=== PATIENT | male | born 1985 | race Caucasian/White ===

== ENCOUNTER 2016-06-08 22:31 | Emergency (ER) | payer BC, OTHER ==
[2016-06-08 22:39] VITALS: BP 142/79; PULSE 77; RESP 18; TEMP 98.1
[2016-06-08] MEDS ORDERED: PROPARACAINE 0.5% OPHTH DROPS 15 ML BTL BOTH EYES STA (22:46)
[2016-06-08] MEDS ORDERED: CIPROFLOXACIN 0.3% OPHTH SOLN 2.5 ML BTL LEFT EYE STA (23:08)
--- NOTE | 2016-06-08 23:12 | ED ---
Eye Problem HPI - General Chief complaint: Eye Problems Stated complaint: FB Left eye Time Seen by Provider: 06/08/16 22:46 Source: patient, RN notes reviewed, old records reviewed Mode of arrival: ambulatory Limitations: no limitations - History of Present Illness Initial comments: Patient is a 30-year-old male chief complaint of a metallic foreign body in the left eye. Patient reports that is mainly over the outer upper corner of the eye and feels like it beneath his eyelid. Patient reports that he has tried to flush his eye has had not been able to get the foreign body out. 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 He reports he does wear safety glasses. He states that this occurred around 10:00 this morning and the pain is continue to persist all day. He states that he doesn't wear glasses or contacts. He denies any changes in vision. - Related Data Home Medications Medication Instructions Recorded Confirmed Ranitidine HCl [Zantac] 150 mg PO BID 06/08/16 06/08/16 Previous Rx's Medication Instructions Recorded Ciprofloxacin Ophth Soln [Ciloxan 1 drops BOTH EYES Q4HR #1 bottle 06/08/16 0.3% Ophth Soln] Allergies Allergy/AdvReac Type Severity Reaction Status Date / Time No Known Allergies Allergy Verified 06/08/16 22:39 Review of Systems ROS Statement: Those systems with pertinent positive or pertinent negative responses have been documented in the HPI. ROS Other: All systems not noted in ROS Statement are negative. Past Medical History Past Medical History: No Reported History History of Any Multi-Drug Resistant Organisms: None Reported Past Surgical History: No Surgical Hx Reported Past Psychological History: No Psychological Hx Reported Smoking Status: Former smoker Past Alcohol Use History: None Reported Past Drug Use History: None Reported General Exam Limitations: no limitations General appearance: alert, in no apparent distress Head exam: Present: atraumatic, normocephalic, normal inspection Eye exam: Present: normal appearance, PERRL, EOMI, conjunctival injection (Left eye conjunctival injection.). Absent: scleral icterus, periorbital swelling ENT exam: Present: normal exam, mucous membranes moist Neck exam: Present: normal inspection. Absent: tenderness, meningismus, lymphadenopathy Respiratory exam: Present: normal lung sounds bilaterally. Absent: respiratory distress, wheezes, rales, rhonchi, stridor Cardiovascular Exam: Present: regular rate, normal rhythm, normal heart sounds. Absent: systolic murmur, diastolic murmur, rubs, gallop, clicks GI/Abdominal exam: Present: soft, normal bowel sounds. Absent: distended, tenderness, guarding, rebound, rigid Extremities exam: Present: normal inspection, full ROM, normal capillary refill. Absent: tenderness, pedal edema, joint swelling, calf tenderness Back exam: Present: normal inspection Neurological exam: Present: alert, oriented X3, CN II-XII intact Psychiatric exam: Present: normal affect, normal mood Skin exam: Present: warm, dry, intact, normal color. Absent: rash Course Vital Signs 06/08/16 22:36 Temperature 98.1 F Pulse Rate 77 Respiratory 18 Rate Blood Pressure 142/79 O2 Sat by Pulse 99 Oximetry Medical Decision Making - Medical Decision Making Patient is a 30-year-old male chief complaint of a metallic foreign body in the left eye. Patient reports that is mainly over the outer upper corner of the eye and feels like it beneath his eyelid. Patient reports that he has tried to flush his eye has had not been able to get the foreign body out. Fluorescein eye exam was performed. No evidence of metallic foreign body embedded within the eye. The eyelid was flipped and there is evidence of the foreign body in the upper corner of the eyelid. It was removed with a moistened a cotton swab. Patient reports relief after the foreign body over the eye was removed with cotton swab. No evidence of other retained foreign body. Patient was given ciprofloxacin drops to the emergency department. Patient was also given a prescription. He was advised to return the emergency department if any worsening signs or symptoms occur. Patient also will be given the number of the rig mechanic to call if his symptoms continue to persist after 3 days. Patient understands treatment plan will comply. Return parameters were discussed. Disposition Clinical Impression: Foreign body of left eye Disposition: HOME SELF-CARE Condition: Good Instructions: Eye Foreign Body (ED) Additional Instructions: Patient advised to continue to put the eye drops and every 4 hours for the next 3 days. Return to emergency department if any alarming signs or symptoms occur. Patient also advised if symptoms continue to persist to follow-up with rig mechanic. Prescriptions: Ciprofloxacin Ophth Soln [Ciloxan 0.3% Ophth Soln] 1 drops BOTH EYES Q4HR #1 bottle Referrals: Wilfredo Mccall MD [Primary Care Provider] - 1-2 days Jamie Cai MD [STAFF PHYSICIAN] - 1-2 days Time of Disposition: 23:10
== END 2016-06-08 23:29 | disposition home or self-care (01) ==
LOC: EC 22:31
DX: S00.252A Superficial foreign body of left eyelid and periocular area, initial encounter (principal); H02.814 Retained foreign body in left upper eyelid; Z18.10 Retained metal fragments, unspecified; Z79.899 Other long term (current) drug therapy; Z87.891 Personal history of nicotine dependence
CPT/HCPCS: 99283

== ENCOUNTER 2018-04-28 13:19 | Emergency (ER) | payer BC, OTHER ==
[2018-04-28 13:25] VITALS: BP 156/96; PULSE 75; RESP 20; TEMP 98.5
[2018-04-28] MEDS ORDERED: PROPARACAINE 0.5% OPHTH DROPS 15 ML BTL LEFT EYE STA (13:30)
[2018-04-28] MEDS ORDERED: TOBRAMYCIN 0.3% OPHTH DROPS 5 ML BTL RIGHT EYE STA (13:50)
--- NOTE | 2018-04-28 13:53 | ED ---
Eye Problem HPI - General Chief complaint: Eye Problems Stated complaint: [facility]-FB in eye Time Seen by Provider: 04/28/18 13:26 Source: patient, RN notes reviewed Mode of arrival: ambulatory Limitations: no limitations - History of Present Illness Initial comments: 32-year-old male presents emergency from for right eye irritation. Patient states that he believes he had a wood chip into his right eye. Denies any blurred vision. He states it has been tearing and sensitive. His tetanus is up -to-date within last 5 years. 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 He did have glasses on. Patient offers no other complaints at this time. Denies any bleeding. - Related Data Home Medications Medication Instructions Recorded Confirmed No Known Home Medications 04/28/18 04/28/18 Allergies Allergy/AdvReac Type Severity Reaction Status Date / Time No Known Allergies Allergy Verified 04/28/18 13:35 Review of Systems ROS Statement: Those systems with pertinent positive or pertinent negative responses have been documented in the HPI. ROS Other: All systems not noted in ROS Statement are negative. Past Medical History Past Medical History: No Reported History History of Any Multi-Drug Resistant Organisms: None Reported Past Surgical History: No Surgical Hx Reported Past Psychological History: No Psychological Hx Reported Smoking Status: Former smoker Past Alcohol Use History: None Reported Past Drug Use History: None Reported General Exam Limitations: no limitations General appearance: alert, in no apparent distress Head exam: Present: atraumatic, normocephalic, normal inspection Eye exam: Present: PERRL, EOMI, conjunctival injection (Mild right), other ( Flourescein dye and Wood's lamp were used to evaluate the right eye. There is noted uptake in the 6 o'clock position of the sclera). Absent: normal appearance, scleral icterus, periorbital swelling ENT exam: Present: normal exam, normal oropharynx, mucous membranes moist Neck exam: Present: normal inspection. Absent: tenderness, meningismus, lymphadenopathy Respiratory exam: Present: normal lung sounds bilaterally. Absent: respiratory distress, wheezes, rales, rhonchi, stridor Cardiovascular Exam: Present: regular rate, normal rhythm, normal heart sounds. Absent: systolic murmur, diastolic murmur, rubs, gallop, clicks Course Vital Signs 04/28/18 13:23 Temperature 98.5 F Pulse Rate 75 Respiratory 20 Rate Blood Pressure 156/96 O2 Sat by Pulse 98 Oximetry Medical Decision Making - Medical Decision Making 32-year-old male presented for right eye irritation. Patient has a sclera abrasion. There is no foreign body noted. Patient's tetanus is up-to-date. Patient was given Tobrex eyedrops will follow-up with ophthalmology on Tuesday return for any worsening symptoms. Disposition Clinical Impression: Abrasion of sclera of right eye Disposition: HOME SELF-CARE Condition: Stable Instructions (If sedation given, give patient instructions): Corneal Abrasion ( ED) Additional Instructions: Use Tobrex eyedrops 1 drop every 4 hours for 7 days. Please return to the Emergency Department if symptoms worsen or any other concerns. Is patient prescribed a controlled substance at d/c from ED?: No Referrals: Wilfredo Mccall MD [Primary Care Provider] - 1-2 days Jose Avila MD [STAFF PHYSICIAN] - 1-2 days Time of Disposition: 13:53
== END 2018-04-28 14:30 | disposition home or self-care (01) ==
LOC: EC 13:19
DX: S05.01XA Injury of conjunctiva and corneal abrasion without foreign body, right eye, initial encounter (principal); Z87.891 Personal history of nicotine dependence; W22.8XXA Striking against or struck by other objects, initial encounter; Y92.69 Other specified industrial and construction area as the place of occurrence of the external cause; Y99.0 Civilian activity done for income or pay
CPT/HCPCS: 99283

== ENCOUNTER → 2018-11-22 | Outpatient (CLI) | payer BC ==
[2018-11-22 14:19] LABS: Basophils % (A) 1 %; Eosinophils # (A) 0.2 k/uL (0-0.7); Eosinophils % (A) 4 %; HCT 43.2 % (39.0-53.0); HGB 14.5 gm/dL (13.0-17.5); Lymphocytes # (A) 2.5 k/uL (1.0-4.8); Lymphocytes % (A) 39 %; MCH 31.1 pg (25.0-35.0); MCHC 33.6 g/dL (31.0-37.0); MCV 92.5 fL (80.0-100.0); Mean Platelet Volume 6.7; Monocytes # (A) 0.5 k/uL (0-1.0); Monocytes % (A) 7 %; Neutrophils % (A) 48 %; Platelet Count 183 k/uL (150-450); RBC 4.67 m/uL (4.30-5.90); RDW 13.2 % (11.5-15.5); WBC 6.3 k/uL (3.8-10.6)
[2018-11-22 18:41] LABS: African American GFR (CKD) 129.6 (60.0-200.0); Albumin 4.2 g/dL (3.80-4.90); Albumin/Globulin Ratio 2.21 (1.60-3.17); Anion Gap 7.9 mmol/L (4.00-12.00); BUN/Creat Ratio 22.22 Ratio (12.00-20.00); Calcium 9.2 mg/dL (8.7-10.3); Carbon Dioxide 26.1 mmol/L (21.6-31.8); Chol/HDL Ratio 4.21; Globulin 1.9 g/dL (1.6-3.3); LDL Cholesterol,Calculated 150.8 mg/dL (0.0-131.0); Potassium 4.4 mmol/L (3.5-5.5); Total Bilirubin 0.5 mg/dL (0.2-1.2); Total Protein 6.1 g/dL (6.2-8.2); VLDL Calculation 19.2 mg/dL (5.00-40.00)
== END | disposition home or self-care (01) ==
LOC: LABWHC1 13:35
PROVIDERS: ATTEND Family Medicine
DX: Z00.00 Encounter for general adult medical examination without abnormal findings (principal)
CPT/HCPCS: 36415; 80053; 80061; 82306; 85025